=== PATIENT | male | born 1965 | race Caucasian/White ===

== ENCOUNTER 2018-03-24 16:40 | Observation (INO) ==
[2018-03-24] MEDS ORDERED: methylPREDNISolone 125 MG/2 ML VIAL IVP ONE (17:19)
[2018-03-24] MEDS ORDERED: 0.9 % Sodium Chloride 1,000 ML IVC ONE (17:19)
[2018-03-24] MEDS ORDERED: Ipratropium/Albuterol Neb 3 ML IH ONE (17:19)
--- NOTE | 2018-03-24 17:20 | Emergency Department Note ---
Disposition Clinical Impression: Acute exacerbation of chronic obstructive airways disease Community acquired pneumonia Qualifiers: Laterality: unspecified laterality Qualified Code(s): J18.9 - Pneumonia, unspecified organism Disposition: Admitted As Inpatient Condition: Fair SOB HPI - General Chief Complaint: ED Shortness of Breath/Dyspnea Stated Complaint: ROSALINO Time Seen by Provider: 03/24/18 16:55 Source: patient Mode of arrival: ambulatory Limitations: no limitations Nursing Notes Reviewed: Yes Vital Signs Reviewed: Yes - History of Present Illness Pt Subjective Complaint: shortness of breath Onset (ago): week(s) (5) Context: other (Progressive shortness of breath.) Severity: severe Consistency/Duration: gradually worsening Improves with: oxygen, bronchodilators Worsens with: exertion, movement, coughing Known history of: COPD Associated symptoms: Reports: cough, wheezing, sputum production. Denies: chest pain, pain with inspiration, fever, orthopnea, lower extremity pain, polyuria, polydipsia, parasthesias, palpitations, hemoptysis, diaphoresis, nausea/vomiting, syncope, abdominal pain, sense of impending doom Treatment prior to arrival: oxygen, bronchodilator Cough present: Yes Cough Description: Involuntary Cough Frequency: Intermittent Sputum Amount: Scant Sputum Color: White, Cream, Yellow - Related Data Home oxygen amount: 2 liters Home Medications Medication Instructions Recorded Confirmed Albuterol Sulfate [Albuterol 2 puff IH Q6HR 06/12/16 03/24/18 Inhaler] Budesonide/Formoterol 160/4.5 1 puff IH BIDR 06/12/16 03/24/18 [Symbicort 160/4.5] Gabapentin [Neurontin] 300 mg PO TID 06/12/16 03/24/18 Oxycodone HCl/Acetaminophen 1 each PO Q6H 09/19/17 03/24/18 [Percocet 10-325 mg Tablet] Allergies Allergy/AdvReac Type Severity Reaction Status Date / Time acetaminophen Allergy Rash Verified 03/24/18 16:42 [From Darvocet-N] propoxyphene Allergy Rash Verified 03/24/18 16:42 [From Darvocet-N] tramadol Allergy Palpitation Verified 06/12/16 11:52 s All systems ED: reviewed and negative except as stated. Review of Systems: As Per HPI Past Medical History - Past Medical History Medical history: Reports: asthma, COPD, other Surgical history: Reports: no surgical history Psychiatric history: Reports: depression - Social History Smoking Status: Current every day smoker Smokeless Tobacco Status: No Alcohol use: Reports: none Drug use: Reports: none Physical Exam - General Limitations: no limitations General appearance: alert - Head Head exam: atraumatic, normocephalic, normal inspection - Eye Eye exam: Present: normal appearance, PERRL, EOMI - Neck Neck exam: Present: normal inspection, full ROM, trachea midline - Chest Chest inspection: Present: normal inspection, symmetric chest wall rise - Respiratory Respiratory exam: Present: respiratory distress, wheezes, prolonged expiratory phase. Absent: stridor, accessory muscle use - Cardiovascular Cardiovascular exam: Present: normal rhythm, tachycardia, normal heart sounds - Abdominal Exam Abdominal exam: Present: soft, Non-Tender. Absent: tenderness, distention, guarding, rebound, rigidity - Extremities Exam Extremities exam: Present: normal inspection, full ROM. Absent: tenderness, pedal edema - Back Exam Back exam: Present: normal inspection, full ROM. Absent: tenderness - Neurological Exam Neurological exam: Present: alert, oriented X3, CN II-XII intact - Psychiatric Psychiatric exam: Present: normal affect, normal mood - Skin Skin exam: Present: warm, dry, intact, normal color Course Vital Signs Temperature 98.4 F 03/24/18 16:46 Pulse Rate 117 03/24/18 16:46 Respiratory Rate 24 03/24/18 16:46 Blood Pressure 127/91 03/24/18 16:46 O2 Sat by Pulse Oximetry 95 03/24/18 16:46 Temperature 97.5 F L 03/25/18 04:04 Pulse Rate 78 03/25/18 04:04 Respiratory Rate 18 03/25/18 04:04 Blood Pressure 127/70 03/25/18 04:04 O2 Sat by Pulse Oximetry 97 03/25/18 04:04 Oxygen Delivery Oxygen Delivery Nasal Cannula Shortness of Breath/Dyspnea - [facility] Narrative Medical decision making narrative: Acute COPD exacerbation with pneumonia. The patient is in respiratory failure but improve after breathing treatments. He will be admitted for IV antibiotics and pulmonary toileting. - Differential Diagnosis Likely: acute exacerbation of chronic obstructive airways disease, congestive heart failure, pneumonia, pneumothorax - Medical Records Medical records reviewed: Yes I reviewed the patient's medical records. - Lab Data Lab results reviewed: Yes I reviewed the patient's lab results. Result diagrams: 03/24/18 17:40 03/24/18 17:40 Lab Results 03/24/18 03/24/18 Range/Units 17:40 17:40 WBC 8.4 (4.3-11.1) K/mcL RBC 3.82 L (4.19-5.50) M/mcL Hgb 12.1 L (12.9-16.9) g/dL Hct 36.1 L (37.5-50.1) % MCV 94.5 (83.0-100.0) fL MCH 31.7 (28.0-33.3) pg MCHC 33.5 (31.6-35.5) g/dL RDW 13.5 (11.5-14.5) % Plt Count 220 (140-400) K/mcL MPV 9.3 L (9.4-12.4) fL Immature Gran % 0.6 (0-4) % Seg Neutrophils % 87.9 % Lymphocytes % 4.9 % Monocytes % 6.4 % Eosinophils % 0.1 % Basophils % 0.1 % Neutrophils # 7.4 (1.6-8.9) K/mcL Lymphocytes # 0.4 L (0.6-4.6) K/mcL Monocytes # 0.5 (0.0-1.3) K/mcL Eosinophils # 0.0 (0.0-0.6) K/mcL Basophils # 0.0 (0.0-0.2) K/mcL Sodium 136 (136-145) mEq/L Potassium 3.8 (3.5-5.1) mEq/L Chloride 95 L (98-107) mEq/L Carbon Dioxide 31 H (23-29) mEq/L BUN 9 (6-20) mg/dL Creatinine 0.56 L (0.70-1.30) mg/dL Est GFR ( Amer) > 60 (> 60) Est GFR (Non-Af Amer) > 60 (> 60) BUN/Creatinine Ratio 16 (6-26) Glucose 138 H (70-105) mg/dL Calculated Osmolality 283 (280-300) Calcium 8.4 L (8.6-10.3) mg/dL - Radiology Data Radiology results reviewed: Yes I reviewed the patient's radiology results. Chest X-Ray 03/24/18 17:19 IMPRESSION: Patchy airspace opacities in the bilateral mid to lower lung zones are concerning for multifocal pneumonia, in the appropriate clinical setting. Short-term imaging follow up after resolution of symptoms and definitive therapy (4-6 weeks) is recommended to document resolution. D/ / Syed Baker / Syed Baker Interpreting Provider: Syed Baker Critical Care Time Critical Care Time: Yes Total Critical Care Time: 45 Attestation: Critical care performed: Time is exclusive of separately billable procedures. Time includes: direct patient care, patient reassessment, coordination of patient care, interpretation of data (laboratory data, radiology data, and respiratory data), review of patient's medical records, medical consultation and documentation of patient care. Procedures included in critical care time: Procedures excluded from critical care time:
[2018-03-24 17:56] LABS: Basophils % 0.1 %; Eosinophils % 0.1 %; Hematocrit 36.1 % (37.5-50.1); Hemoglobin 12.1 g/dL (12.9-16.9); Immature Granulocytes % 0.6 % (0-4); Lymphocytes # 0.4 K/mcL (0.6-4.6); Lymphocytes % 4.9 %; Mean Corpuscular HGB Conc 33.5 g/dL (31.6-35.5); Mean Corpuscular Hemoglobin 31.7 pg (28.0-33.3); Mean Corpuscular Volume 94.5 fL (83.0-100.0); Mean Platelet Volume 9.3 fL (9.4-12.4); Monocytes # 0.5 K/mcL (0.0-1.3); Monocytes % 6.4 %; Neutrophils # 7.4 K/mcL (1.6-8.9); Platelet Count 220 K/mcL (140-400); Red Blood Count 3.82 M/mcL (4.19-5.50); Red Cell Distribution Width 13.5 % (11.5-14.5); Segmented Neutrophils % 87.9 %
[2018-03-24] MEDS ORDERED: Levofloxacin 750 MG/150 ML 750 MG/150 ML BAG IVPB ONE (17:57)
[2018-03-24 18:13] LABS: BUN/Creatinine Ratio 16 (6-26); Blood Urea Nitrogen 9 mg/dL (6-20); Calcium 8.4 mg/dL (8.6-10.3); Carbon Dioxide 31 mEq/L (23-29); Chloride 95 mEq/L (98-107); Glucose 138 mg/dL (70-105); Osmolality,Calculated 283 (280-300); Potassium 3.8 mEq/L (3.5-5.1); Sodium 136 mEq/L (136-145); eGFR For African Americans > 60 (> 60); eGFR For Non-African Americans > 60 (> 60)
[2018-03-24] MEDS ORDERED: Naloxone 0.4 MG/ML INJ IVP PRN (19:49)
[2018-03-24] MEDS ORDERED: Acetaminophen 325 MG TABLET PO PRN (19:49)
[2018-03-24] MEDS ORDERED: OXYCODONE Oral CONC 10 MG/0.5 ML ORAL.SYG SL PRN (19:49)
[2018-03-24] MEDS ORDERED: Ondansetron 4 MG/2 ML VIAL IVP PRN (19:49)
[2018-03-24] MEDS: MethylPREDNISolone 40 MG/ML VIAL IVP SCH (20:31)
[2018-03-24] MEDS: Gabapentin 300 MG CAPSULE PO SCH (20:34)
[2018-03-24] MEDS: *HR* OxyCODONE/APAP 10/325 TABLET PO SCH (20:34)
[2018-03-24] MEDS: Budesonide/Formoterol 160/4.5 MDI IH SCH (21:17)
[2018-03-24] MEDS: Albuterol 2.5 MG/3 ML NEBULIZER IH PRN (21:50)
[2018-03-25] MEDS: Albuterol 2.5 MG/3 ML NEBULIZER IH PRN ×6 (00:07→20:34)
[2018-03-25] MEDS: *HR* OxyCODONE/APAP 10/325 TABLET PO SCH ×4 (02:09→20:27)
[2018-03-25] MEDS: MethylPREDNISolone 40 MG/ML VIAL IVP SCH ×3 (04:21→20:27)
[2018-03-25] MEDS ORDERED: *HR* OxyCODONE Immed Rel 5 MG TABLET PO PRN (08:45)
[2018-03-25] MEDS: Gabapentin 300 MG CAPSULE PO SCH ×3 (08:46→20:27)
[2018-03-25] MEDS ORDERED: Nicotine 21 MG PATCH.TD24 TD SCH (09:00)
[2018-03-25] MEDS: Budesonide/Formoterol 160/4.5 MDI IH SCH ×2 (10:08→20:37)
--- NOTE | 2018-03-25 12:13 | Internal Med History&Physical ---
Date of Encounter: 03/25/18 Time of Encounter: 11:35 Assessment and Plan (1) Community acquired pneumonia Current visit: Yes Status: Acute He has been started on Levaquin through emergency room. Will add lactobacillus and Robitussin DM Qualifiers: Laterality: unspecified laterality Qualified Code(s): J18.9 - Pneumonia, unspecified organism (2) Anemia Current visit: Yes Status: Acute Will order anemia testing in a.m. Qualifiers: Anemia type: unspecified type Qualified Code(s): D64.9 - Anemia, unspecified (3) Weight loss Current visit: Yes Status: Acute Will order TSH and CT of chest, abdomen, and pelvis. (4) Acute exacerbation of chronic obstructive airways disease Current visit: Yes Status: Acute Continue antibiotic and probiotic. Will add Singulair and DuoNebs. Continue Symbicort and prn albuterol nebs. Internal Medicine - H&P: HPI Chief complaint: Cough and dyspnea Admitted From: Emergency Dept Plans for Post Hospital Care: Home History of present illness: Mr. Reyes is a 53 year old male who came to emergency room stating he had cough with increasing dyspnea since March 20. He reports the cough is productive of thick yellow sputum but no visible blood. He was evaluated in emergency room and found to have bilateral infiltrates on chest x-ray. He was admitted to [facility] floor for ongoing care needs. His respiratory history is significant for having smoked since age 18 up to 2 packs per day. Has a diagnosis of COPD/emphysema and has been prescribed oxygen which he wears at bedtime and when necessary during the daytime. He reports PFTs were done approximately 2014. Past Med Surg Social Fam HX - Past Medical History Medical history: asthma, COPD, other Psychiatric history: depression - Past Surgical History Surgical History: no surgical history - Social History Smoking Status: Current every day smoker Smokeless Tobacco Status: No Alcohol use: none Drug use: none Internal Medicine - H&P: Meds Albuterol Sulfate [Albuterol Inhaler] 2 puff IH Q6HR 06/12/16 [History] Budesonide/Formoterol 160/4.5 [Symbicort 160/4.5] 1 puff IH BIDR 06/12/16 [ History] Gabapentin [Neurontin] 300 mg PO TID 06/12/16 [History] Oxycodone HCl/Acetaminophen [Percocet 10-325 mg Tablet] 1 each PO Q6H 09/19/17 [ History] 3 Allergy/AdvReac Type Severity Reaction Status Date / Time acetaminophen Allergy Rash Verified 03/24/18 16:42 [From Darvocet-N] propoxyphene Allergy Rash Verified 03/24/18 16:42 [From Darvocet-N] tramadol Allergy Palpitation Verified 06/12/16 11:52 s All Systems PM: A 10-system review of systems was performed and is negative for pertinent findings except as documented above in the HPI. Review of systems: Gen.: He reports his weight has decreased from approximately 176 pounds one year ago to present weight of approximately 165 pounds. This was unintentional. Cardiovascular: He has had occasional sharp chest pains in his lateral ribs intermittently over the past month. It seems to be worse on coughing. He denies hypertension HI heart failure DVT or pulmonary embolus. He does get dyspneic on exertion. Respiratory: As per history of present illness GI: Denies disorders of his liver gallbladder or exocrine pancreas : He denies hematuria dysuria or kidney stones Neurologic: He denies large distribution strokes or seizures. Endocrine: He was told in the past he had "thyroid disease" but he does not remember details. He does not take medication for this presently. He denies diabetes or hyperlipidemia Hematology/oncology: He was unaware he had anemia on labs in emergency room. He denies known internal malignancies or other blood disorders. Psychiatric: He has anxiety and depression but does not take medication at this time. [place] skeletal: He reports he had a fall off a roof 2012 and sustained a left arm fracture and bilateral pneumothoraces. He was hospitalized over 40 days at [facility] and required bilateral chest tubes and prolonged therapy. He follows up at a [place] pain management clinic every 4 weeks. He denies other bone joint or muscle disorders. - Constitutional Vitals: Temp Pulse Resp BP Pulse Ox 97.5 F L 98 22 141/83 96 03/25/18 10:29 03/25/18 10:29 03/25/18 10:29 03/25/18 10:29 03/25/18 10:29 Exam: Gen.: He is a well-developed well-nourished male who appears dyspneic at present time. HEENT: Head is atraumatic and normocephalic. Eyes: EOMI. There is no scleral icterus. Mouth: Mucosa is moist. Neck: Supple and nontender. There is no thyromegaly or adenopathy noted. Heart: Regular without murmurs gallops or ectopics Chest: There is no tenderness on compression of his lateral thorax area where he states chest pain has occurred in the past month. Lungs: He has prolonged expiratory phase and mild diffuse wheezing. Abdomen: Soft and nontender. No masses or guarding are noted. Extremities: There is no cyanosis edema or clubbing noted. Dorsalis pedis and posttibial pulses are trace to 1+ palpable bilaterally. His feet are warm to touch. Neurologic: Mental status: He is talkative and a good historian. Cranial nerves : Smile is symmetric. Forehead wrinkles bilaterally. Tongue protrudes midline. EOMI. Motor: There is no pronator drift. Cerebellar: Finger to nose is intact bilaterally. Skin: Warm and dry Internal Med - H&P Results - Labs CBC & Chem 7: 03/24/18 17:40 03/24/18 17:40
[2018-03-25] MEDS: Ipratropium/Albuterol Neb 3 ML IH SCH (16:11)
--- NOTE | 2018-03-25 16:38 | Electrocardiograph Report ---
[address] [place], [place] [address] Test Date: 2018-03-24 Pat Name: Zheng Reyes Department: [id number] Room: [facility] Gender: M Forensic Document Examiner: [id number] : 1965 Requested By: Anuj Melton Order Number: [id number] Reading MD: Yoselin Chung Measurements Intervals [place] Rate: 116 P: 81 SD: 111 QRS: 81 QRSD: 78 T: 74 QT: 325 QTc: 394 Interpretive Statements SINUS TACHYCARDIA POSSIBLE RIGHT ATRIAL ENLARGEMENT ABNORMAL RHYTHM ECG Electronically Signed On 03-25-2018 16:37:07 EDT by Yoselin Chung
[2018-03-25] MEDS ORDERED: Levofloxacin 750 MG/150 ML 750 MG/150 ML BAG IVPB SCH (18:00)
[2018-03-25] MEDS ORDERED: Lactobacillus 1 EACH CAP.SPRINK PO SCH (21:00)
[2018-03-25 21:33] VITALS: BP 168/94
[2018-03-25 21:42] LABS: ABG Base Excess 6 mEq/L (-2 to 3); ABG HCO3 32 mEq/L (21-27); ABG Oxygen Saturation 91 % (95-98); ABG PCO2 50 mmHg (35-45); ABG PH 7.42 pH Units (7.32-7.45); ABG PO2 60 mmHg (85-104); ABG TCO2 34 mEq/L (20-26); Blood Gas Modality oxy mask
[2018-03-26 00:14] LABS: ABG Base Excess 6 mEq/L (-2 to 3); ABG HCO3 31 mEq/L (21-27); ABG Oxygen Saturation 90 % (95-98); ABG PCO2 46 mmHg (35-45); ABG PH 7.43 pH Units (7.32-7.45); ABG PO2 57 mmHg (85-104); ABG TCO2 32 mEq/L (20-26)
[2018-03-26] MEDS: Ipratropium/Albuterol Neb 3 ML IH SCH (02:49)
--- NOTE | 2018-03-26 09:45 | Discharge Summary ---
Date of Encounter: 03/26/18 Time of Encounter: 09:43 - Discharge Diagnosis (1) Community acquired pneumonia Priority: Primary Status: Acute Qualifiers: Laterality: unspecified laterality Qualified Code(s): J18.9 - Pneumonia, unspecified organism (2) Acute exacerbation of chronic obstructive airways disease Priority: Secondary Status: Acute (3) Anemia Priority: Secondary Status: Acute Qualifiers: Anemia type: unspecified type Qualified Code(s): D64.9 - Anemia, unspecified (4) Weight loss Priority: Secondary Status: Acute Hospital course: Mr. Reyes is a 53 year old male who came to emergency room stating he had cough with increasing dyspnea since March 20. He reports the cough is productive of thick yellow sputum but no visible blood. He was evaluated in emergency room and found to have bilateral infiltrates on chest x-ray. He was admitted to [facility] floor for ongoing care needs. Initial orders were written by the emergency room physician. I saw him on March 25 and performed a history and physical. He was started on Levaquin. I added lactobacillus and Robitussin. CT of chest abdomen pelvis was done to further evaluate his pneumonia and reported weight loss. There were multifocal bilateral infiltrates seen. The evening of March 25 he was noted to have increased respiratory distress. His requested he be transferred to [facility]. Contact was made with the hospitalist and arrangements were completed for transfer for ongoing care needs. - Time Spent with Patient Total time spent providing and/or coordinating discharge services: - Discharge Medications Home Medications: Albuterol Sulfate [Albuterol Inhaler] 2 puff IH Q6HR 06/12/16 [History] Budesonide/Formoterol 160/4.5 [Symbicort 160/4.5] 1 puff IH BIDR 06/12/16 [ History] Gabapentin [Neurontin] 300 mg PO TID 06/12/16 [History] Oxycodone HCl/Acetaminophen [Percocet 10-325 mg Tablet] 1 each PO Q6H 09/19/17 [ History] Allergies/Adverse Reactions: 3 Allergy/AdvReac Type Severity Reaction Status Date / Time propoxyphene Allergy Rash Verified 03/24/18 16:42 [From Darvocet-N] tramadol Allergy Palpitation Verified 06/12/16 11:52 s Date of admission: 03/24/18 19:16 Primary care physician: PCP NONE - Constitutional Vitals: Temp Pulse Resp BP Pulse Ox 97.1 F L 116 32 168/94 92 03/25/18 21:31 03/25/18 21:31 03/25/18 21:31 03/25/18 21:31 03/25/18 21:31 - Patient Status Disposition: Transfer Short-Term Hosp Condition: Fair - Discharge Instructions Follow Up With: NONE,PCP [Primary Care Provider] - 1 week
== END 2018-03-25 21:45 | disposition short-term general hospital (02) ==
LOC: INPPIK 16:40 → EMEROOPIK 16:40 → INPPIK 19:44
PROVIDERS: ADMIT Internal Medicine; ATTEND Internal Medicine

== ENCOUNTER 2019-02-21 19:04 | Observation (INO) ==
[2019-02-21] MEDS ORDERED: Ipratropium/Albuterol Neb 3 ML IH ONE (19:28)
--- NOTE | 2019-02-21 19:30 | Emergency Department Note ---
Disposition Clinical Impression: COPD exacerbation Disposition: Admitted As Inpatient Referrals: NONE,PCP [Primary Care Provider] - Forms: ED Satisfaction Letter General Adult HPI - General Chief complaint: ED Shortness of Breath/Dyspnea Stated complaint: ROSALINO/Pneumonia Time Seen by Provider: 02/21/19 19:15 Source: patient Mode of arrival: ambulatory Limitations: no limitations Nursing Notes Reviewed: Yes Vital Signs Reviewed: Yes - History of Present Illness HPI Narrative: Patient says he is here in the hospital on Sunday and was advised stay as inpatient because of pneumonia and he was stubborn and went home. His been taking the medications they gave him but is not helping so he decided to come back because of increasing shortness of breath. He denies any chest pain and otherwise states she is feeling okay he just cannot catch his breath. Onset (ago): day(s) (Several days) Location: chest Pain Scale: 0 Consistency: constant Improves with: nothing Worsens with: nothing - Related Data Home Medications Medication Instructions Recorded Confirmed Albuterol Sulfate [Albuterol 2 puff IH Q6HR 06/12/16 02/21/19 Inhaler] Oxycodone HCl/Acetaminophen 1 each PO Q6H 09/19/17 02/21/19 [Percocet 10-325 mg Tablet] Gabapentin [Neurontin] 600 mg PO QID 03/26/18 02/21/19 Salmeterol Xinafoate [Serevent 50 mcg IH DAILY 03/26/18 02/21/19 Diskus] Previous Rx's Medication Instructions Recorded Budesonide/Formoterol 160/4.5 1 puff IH BIDR inhaler 04/02/18 [Symbicort 160/4.5] levoFLOXacin [Levaquin] 750 mg PO DAILY 7 Days #7 tablet 02/18/19 predniSONE [PredniSONE] 40 mg PO DAILY #10 tablet 02/18/19 Allergies Allergy/AdvReac Type Severity Reaction Status Date / Time propoxyphene Allergy Rash Verified 02/18/19 16:45 [From Darvocet-N] tramadol Allergy Palpitation Verified 02/18/19 16:45 s Past Medical History - Past Medical History Medical history: Reports: asthma, COPD, hyperlipidemia, hypertension, other Surgical history: Reports: no surgical history, other Psychiatric history: Reports: anxiety, depression - Social History Smoking Status: Current every day smoker Smokeless Tobacco Status: No Alcohol use: Reports: rarely Drug use: Reports: none Physical Exam - General Limitations: no limitations General appearance: alert Course Vital Signs Temperature 98.4 F 02/21/19 19:09 Pulse Rate 106 02/21/19 19:09 Respiratory Rate 24 02/21/19 19:09 Blood Pressure 151/90 02/21/19 19:09 O2 Sat by Pulse Oximetry 97 02/21/19 19:09 Temperature 98.4 F 02/21/19 19:09 Pulse Rate 106 02/21/19 19:09 Respiratory Rate 24 02/21/19 19:09 Blood Pressure 151/90 02/21/19 19:09 O2 Sat by Pulse Oximetry 96 02/21/19 19:13 Oxygen Delivery Oxygen Delivery Nasal Cannula Medical Decision Making - MDM Narrative Medical decision making narrative: I reviewed the patient's medication list Patient's condition was discussed with Dr. Williamson who accepts admission - Lab Data Lab results reviewed: Yes I reviewed the patient's lab results. Result diagrams: 02/21/19 19:43 Lab Results 02/21/19 Range/Units 19:43 WBC 5.7 (4.3-11.1) K/mcL RBC 4.00 L (4.19-5.50) M/mcL Hgb 12.4 L (12.9-16.9) g/dL Hct 37.3 L (37.5-50.1) % MCV 93.3 (83.0-100.0) fL MCH 31.0 (28.0-33.3) pg MCHC 33.2 (31.6-35.5) g/dL RDW 13.1 (11.5-14.5) % Plt Count 248 (140-400) K/mcL MPV 9.1 L (9.4-12.4) fL - Radiology Data Radiology results reviewed: Yes I reviewed the patient's radiology results. - EKG Data EKG #1 EKG attestation: Yes I reviewed and interpreted this EKG. EKG results narrative: EKG shows sinus rhythm with rate of 83 bpm MN interval 88 ms. QRS duration 134 ms. QT interval 437 QTC 477 ms R axis XCIII degrees a right bundle-branch pattern is noted no acute ST elevation is appreciated
[2019-02-21 19:57] LABS: Basophils % 0.2 %; Hematocrit 37.3 % (37.5-50.1); Hemoglobin 12.4 g/dL (12.9-16.9); Immature Granulocytes % 0.5 % (0-4); Lymphocytes # 1.8 K/mcL (0.6-4.6); Lymphocytes % 31.8 %; Mean Corpuscular HGB Conc 33.2 g/dL (31.6-35.5); Mean Corpuscular Volume 93.3 fL (83.0-100.0); Mean Platelet Volume 9.1 fL (9.4-12.4); Monocytes # 0.6 K/mcL (0.0-1.3); Monocytes % 9.8 %; Neutrophils # 3.3 K/mcL (1.6-8.9); Platelet Count 248 K/mcL (140-400); Red Cell Distribution Width 13.1 % (11.5-14.5); Segmented Neutrophils % 57.7 %
[2019-02-21 20:14] LABS: Alanine Aminotransferase 23 Units/L (7-52); Albumin 3.8 g/dL (3.5-5.7); Albumin/Globulin Ratio 1.4 (1.1-2.2); Alkaline Phosphatase 63 Units/L (34-104); Aspartate Amino Transferase 20 Units/L (13-39); BUN/Creatinine Ratio 18 (6-26); Bilirubin,Total 0.2 mg/dL (0.3-1.0); Blood Urea Nitrogen 14 mg/dL (6-20); Calcium 8.8 mg/dL (8.6-10.3); Carbon Dioxide 31 mEq/L (23-29); Chloride 101 mEq/L (98-107); Globulin 2.8 g/dL (2.4-3.5); Glucose 132 mg/dL (70-105); Osmolality,Calculated 292 (280-300); Potassium 3.2 mEq/L (3.5-5.1); Sodium 140 mEq/L (136-145); Total Protein 6.6 g/dL (6.4-8.9); eGFR For Non-African Americans > 60 (> 60)
[2019-02-21 20:18] LABS: Troponin I < 0.03 ng/mL (< 0.04)
[2019-02-21 20:20] LABS: Platelet Estimate Normal (Normal)
[2019-02-21] MEDS ORDERED: methylPREDNISolone 125 MG/2 ML VIAL IVP ONE (20:31)
[2019-02-21] MEDS ORDERED: cefTRIAXone 1,000 MG in Water for inj. (sterile) 20 ML 10 ML IVP ONE (20:46)
[2019-02-21] MEDS ORDERED: Naloxone 0.4 MG/ML INJ IVP PRN (21:28)
[2019-02-21] MEDS ORDERED: 0.9 % Sodium Chloride 1,000 ML IVC SCH (21:28)
[2019-02-21] MEDS: *HR* OxyCODONE/APAP 10/325 TABLET PO SCH (22:17)
[2019-02-21] MEDS: Gabapentin 300 MG CAPSULE PO SCH (22:18)
[2019-02-21] MEDS: Nicotine 21 MG PATCH.TD24 TD SCH (22:21)
[2019-02-21] MEDS: Ipratropium/Albuterol Neb 3 ML IH SCH (23:34)
[2019-02-22] MEDS ORDERED: Ipratropium/Albuterol Neb 3 ML IH SCH
[2019-02-22] MEDS: Ipratropium/Albuterol Neb 3 ML IH SCH ×5 (03:57→20:32)
[2019-02-22] MEDS: *HR* OxyCODONE/APAP 10/325 TABLET PO SCH ×4 (04:15→21:33)
[2019-02-22 04:31] LABS: Hemoglobin 11.8 g/dL (12.9-16.9); Immature Granulocytes % 0.4 % (0-4); Lymphocytes # 0.6 K/mcL (0.6-4.6); Lymphocytes % 23.4 %; Mean Corpuscular HGB Conc 32.8 g/dL (31.6-35.5); Mean Corpuscular Hemoglobin 30.9 pg (28.0-33.3); Mean Corpuscular Volume 94.2 fL (83.0-100.0); Mean Platelet Volume 9.2 fL (9.4-12.4); Monocytes # 0.1 K/mcL (0.0-1.3); Neutrophils # 1.8 K/mcL (1.6-8.9); Platelet Count 222 K/mcL (140-400); Red Blood Count 3.82 M/mcL (4.19-5.50); Red Cell Distribution Width 13.2 % (11.5-14.5); Segmented Neutrophils % 72.2 %
[2019-02-22 05:24] LABS: Platelet Estimate Normal (Normal)
[2019-02-22 05:27] LABS: BUN/Creatinine Ratio 21 (6-26); Blood Urea Nitrogen 13 mg/dL (6-20); Calcium 8.6 mg/dL (8.6-10.3); Carbon Dioxide 30 mEq/L (23-29); Chloride 100 mEq/L (98-107); Glucose 174 mg/dL (70-105); Osmolality,Calculated 288 (280-300); Potassium 4.4 mEq/L (3.5-5.1); Sodium 137 mEq/L (136-145); eGFR For Non-African Americans > 60 (> 60)
[2019-02-22] MEDS: predniSONE 20 MG TABLET PO SCH (08:44)
[2019-02-22] MEDS: cefTRIAXone 1,000 MG in 0.9 % Sodium Chloride Mini Bag 100 ML IVPB SCH (08:45)
[2019-02-22] MEDS: Gabapentin 300 MG CAPSULE PO SCH ×4 (08:45→21:34)
[2019-02-22] MEDS ORDERED: NON-FORMULARY MEDICATION 1 EACH EACH (Salmeterol Xinafoate [Serevent Diskus] 50 MCG) IH SCH (09:00)
--- NOTE | 2019-02-22 16:25 | Internal Med History&Physical ---
Date of Encounter: 02/22/19 Time of Encounter: 15:55 Assessment and Plan (1) Acute exacerbation of chronic obstructive airways disease Current visit: No Status: Acute He has been started on IV antibiotics and prednisone. Chest CT will be done to further evaluate. (2) Anemia Current visit: No Status: Chronic Anemia testing will be done in a.m. Qualifiers: Anemia type: iron deficiency Iron deficiency anemia type: other iron d eficiency Qualified Code(s): D50.8 - Other iron deficiency anemias (3) Weight loss Current visit: No Status: Acute Chest CT will be done to further evaluate. TSH was normal at 4.972 on 07/03/2018. Internal Medicine - H&P: HPI Chief complaint: Dyspnea Admitted From: Emergency Dept Plans for Post Hospital Care: Home History of present illness: Mr. Reyes is a 54 year old male who returned to emergency room stating he had worsening dyspnea with minimally productive cough. He had been seen in emergency room February 18 and was felt to have pneumonia. He refused admission. He was prescribed Levaquin and prednisone and she states he took as directed but without improvement. Reports nausea but no vomiting or diarrhea. He came back emergency room and was felt to have exacerbation of COPD and possible pneumonia. He was admitted to [facility] floor for ongoing care needs. Respiratory history is significant for having smoked since age 18 up to 2 packs per day. He had PFTs 08/23/2018 which showed FVC 28% predicted, FEV1 17% productive, FEV1/FVC 48%, with significant improvement in FVC and FEV1 post bronchodilator. He was diagnosed with severe emphysema and uses oxygen at b edtime and when necessary during day time. Past Med Surg Social Fam HX - Past Medical History Medical history: asthma, COPD, hyperlipidemia, hypertension, other Additional medical history: PNEUMONIA, WEARS HOME 02 AT 2LPM VIA [place] Psychiatric history: anxiety, depression - Past Surgical History Surgical History: no surgical history, other Additional surgical history: Multiple chest tubes, Rib fractures - Social History Smoking Status: Current every day smoker Packs per day: 1 Smokeless Tobacco Status: No Alcohol use: none Drug use: none Internal Medicine - H&P: Meds Albuterol Sulfate [Albuterol Inhaler] 2 puff IH Q6HR 06/12/16 [History] Oxycodone HCl/Acetaminophen [Percocet 10-325 mg Tablet] 1 each PO Q6H 10/25/17 [History] Gabapentin [Neurontin] 600 mg PO QID 03/26/18 [History] Salmeterol Xinafoate [Serevent Diskus] 50 mcg IH DAILY 03/26/18 [History] Budesonide/Formoterol 160/4.5 [Symbicort 160/4.5] 1 puff IH BIDR inhaler [Rx] levoFLOXacin [Levaquin] 750 mg PO DAILY 7 Days #7 tablet 02/18/19 [Rx] predniSONE [PredniSONE] 40 mg PO DAILY #10 tablet 02/18/19 [Rx] Allergy/AdvReac Type Severity Reaction Status Date / Time propoxyphene Allergy Rash Verified 02/18/19 16:45 [From Zulema-N] tramadol Allergy Palpitation Verified 02/18/19 16:45 s All Systems PM: A 10-system review of systems was performed and is negative for pertinent find ings except as documented above in the HPI. Review of systems: Review of systems from his February 2018 [facility] hospitalization were reviewed and revised as below. Gen.: He reports his weight has decreased from approximately 176 pounds 2 years ago to present weight of approximately 140 pounds. This was unintentional. Cardiovascular: He has had occasional sharp chest pains in his lateral ribs intermittently over the past year. He denies hypertension [place] heart failure DVT or pulmonary embolus. He does get dyspneic on exertion. Respiratory: As per history of present illness GI: Denies disorders of his liver gallbladder or exocrine pancreas : He denies hematuria dysuria or kidney stones Neurologic: He denies large distribution strokes or seizures. Endocrine: He was told in the past he had "thyroid disease" but he does not remember details. He does not take medication for this presently. He denies diabetes or hyperlipidemia Hematology/oncology: He was unaware he had anemia on labs in emergency room. He also had anemia during his [facility] hospitalization March 2018 which resolved. He denies known internal malignancies or other blood disorders. Psychiatric: He has anxiety and depression but does not take medication at this time. [place] skeletal: He reports he had a fall off a roof 2012 and sustained a left arm fracture and bilateral pneumothoraces. He was hospitalized over [address] [facility] and required bilateral chest tubes and prolonged therapy. He follows up at a [place] pain management clinic every 4 weeks. He denies other bone joint or muscle disorders. - Constitutional Vitals: Temp Pulse Resp BP Pulse Ox 98 F 77 16 88/54 100 02/22/19 16:10 02/22/19 16:10 02/22/19 16:10 02/22/19 16:10 02/22/19 16:10 Exam: Gen.: He is a well-developed well-nourished male lying in bed who appears to have mild respiratory distress. HEENT: Head is atraumatic and normocephalic. Eyes: EOMI. There is no scleral icterus. Mouth: Mucosa is moist. Neck: Supple and nontender. There is no thyromegaly or adenopathy noted. Heart: Regular without murmurs gallops or ectopics. Rate is approximately 100/m Lungs: He has prolonged expiratory phase and mild diffuse wheezing. No egophony is heard. Breath sounds are diminished overall. Abdomen: Soft and nontender. No masses or guarding are noted. Extremities: There is no cyanosis edema or clubbing noted. Dorsalis pedis and posttibial pulses are trace to 1+ palpable bilaterally. His feet are warm to touch. Neurologic: Mental status: He is talkative and a good historian. Cranial nerves: Smile is symmetric. Forehead wrinkles bilaterally. Tongue protrudes midline. EOMI. Motor: There is no pronator drift. Cerebellar: Finger to nose is intact bilaterally. Skin: Warm and dry Internal Med - H&P Results - Labs CBC & Chem 7: 02/22/19 04:26 02/22/19 04:26 Labs: Short CBC 02/21/19 02/22/19 Range/Units 19:43 04:26 WBC 5.7 2.5 L D (4.3-11.1) K/mcL Hgb 12.4 L 11.8 L (12.9-16.9) g/dL Hct 37.3 L 36.0 L (37.5-50.1) % Plt Count 248 222 (140-400) K/mcL Neutrophils # 3.3 1.8 (1.6-8.9) K/mcL BMP 02/21/19 02/22/19 19:43 04:26 Sodium 140 137 Potassium 3.2 L 4.4 D Chloride 101 100 Carbon Dioxide 31 H 30 H BUN 14 13 Creatinine 0.76 0.63 L Glucose 132 H 174 H Calcium 8.8 8.6 Cardiac Enzymes 02/21/19 02/22/19 02/22/19 Range/Units 19:43 04:26 09:23 Troponin I < 0.03 < 0.03 < 0.03 (< 0.04) ng/mL Liver Function 02/21/19 Range/Units 19:43 Total Bilirubin 0.2 L (0.3-1.0) mg/dL AST 20 (13-39) Units/L ALT 23 (7-52) Units/L Alkaline Phosphatase 63 (34-104) Units/L Albumin 3.8 (3.5-5.7) g/dL - Impressions ITS Impressions Chest X-Ray 02/21/19 19:28 IMPRESSION: Advanced emphysema. Bibasilar interstitial opacity suspected to be due to bronchovascular crowding from the upper lobe emphysema although mild edema could have this appearance D/ / Scott Madrid MD / Scott Madrid MD Interpreting Provider: Scott Madrid MD
[2019-02-22] MEDS: Doxycycline 100 MG in 0.9 % Sodium Chloride Mini Bag 100 ML IVPB SCH (17:50)
[2019-02-22] MEDS: Budesonide/Formoterol 160/4.5 1 PUFF INH IH SCH (20:43)
[2019-02-22] MEDS: Lactobacillus 1 EACH CAP.SPRINK PO SCH (21:33)
[2019-02-22] MEDS: Nicotine 21 MG PATCH.TD24 TD SCH (21:34)
[2019-02-23] MEDS: Ipratropium/Albuterol Neb 3 ML IH SCH ×3 (00:28→07:50)
[2019-02-23] MEDS: *HR* OxyCODONE/APAP 10/325 TABLET PO SCH ×2 (03:57→08:03)
[2019-02-23] MEDS: Doxycycline 100 MG in 0.9 % Sodium Chloride Mini Bag 100 ML IVPB SCH (05:33)
[2019-02-23 06:49] LABS: Hematocrit 40.3 % (37.5-50.1); Hemoglobin 12.7 g/dL (12.9-16.9); Mean Corpuscular HGB Conc 31.5 g/dL (31.6-35.5); Mean Corpuscular Hemoglobin 30.3 pg (28.0-33.3); Mean Corpuscular Volume 96.2 fL (83.0-100.0); Mean Platelet Volume 9.7 fL (9.4-12.4); Platelet Count 264 K/mcL (140-400); Red Blood Count 4.19 M/mcL (4.19-5.50); Red Cell Distribution Width 13.2 % (11.5-14.5)
[2019-02-23 07:50] LABS: Thyroid Stimulating Hormone 1.737 mcIU/mL (0.340-5.600)
[2019-02-23] MEDS: Budesonide/Formoterol 160/4.5 1 PUFF INH IH SCH (07:50)
[2019-02-23 07:59] LABS: Lymphocytes # 1.8 K/mcL (0.6-4.6); Monocytes # 0.3 K/mcL (0.0-1.3); Neutrophils # 5.1 K/mcL (1.6-8.9); Reactive Lymphocytes Present (Not Present)
[2019-02-23 08:00] LABS: Platelet Estimate Normal (Normal); Toxic Granulation Present (Not Present)
[2019-02-23] MEDS: predniSONE 20 MG TABLET PO SCH (08:03)
[2019-02-23] MEDS: cefTRIAXone 1,000 MG in 0.9 % Sodium Chloride Mini Bag 100 ML IVPB SCH (08:03)
[2019-02-23] MEDS: Lactobacillus 1 EACH CAP.SPRINK PO SCH (08:04)
[2019-02-23] MEDS: Gabapentin 300 MG CAPSULE PO SCH (08:11)
[2019-02-23 09:51] LABS: Folate 4.8 ng/mL (3.0-16.0)
--- NOTE | 2019-02-23 10:23 | Discharge Summary ---
Orders not resulted at time of discharge: Pending orders 02/21/19 19:28 ECG 12 lead ECG [ECG] Stat 02/21/19 19:43 Culture,Blood [BC] Stat Date of Encounter: 02/23/19 Time of Encounter: 10:05 - Discharge Diagnosis (1) Community acquired pneumonia Priority: Primary Status: Acute Qualifiers: Laterality: unspecified laterality Qualified Code(s): J18.9 - Pneumonia, un specified organism (2) Acute exacerbation of chronic obstructive airways disease Priority: Secondary Status: Acute (3) Anemia Priority: Secondary Status: Chronic Qualifiers: Anemia type: iron deficiency Iron deficiency anemia type: other iron deficiency Qualified Code(s): D50.8 - Other iron deficiency anemias (4) Weight loss Priority: Secondary Status: Acute Hospital course: Mr. Reyes is a 54 year old male who returned to emergency room stating he had worsening dyspnea with minimally productive cough. He had been seen in emergency room February 18 and was felt to have pneumonia. He refused admission. He was prescribed Levaquin and prednisone and she states he took as directed but without improvement. Reports nausea but no vomiting or diarrhea. He came back emergency room and was felt to have exacerbation of COPD and possible pneumonia. He was admitted to [facility] floor for ongoing care needs. Initial orders were written by the emergency room physician. I saw him on February 22 and performed a history and physical. He was started on IV Rocephin with doxycycline. Lactobacillus was added. Chest CT was done to further evaluate. It showed scattered bibasilar nodular opacities within both lungs most likely infectious/inflammatory etiology consistent with multifocal pneumonia. Recommendation for repeat chest CT in 6-8 weeks to ensure resolution was recommended. His PCP can order this. There was severe biapical bullous emphys kavita seen. TSH returned normal at 1.737. PCP can monitor weight loss and refer for further workup as needed. He had good clinical response and felt improved and stable for discharge home when I saw him on February 23. He will continue with antibiotic and probiotic with prednisone for 5 additional days at discharge. I encouraged him to become a nonsmoker. He has supplemental oxygen at home. He will follow with [facility] staff within 1 week. - Time Spent with Patient Total time spent providing and/or coordinating discharge services: - Discharge Medications Prescriptions: New Cefuroxime PO [Ceftin] 500 mg PO Q12HR #10 tablet Budesonide/Formoterol 160/4.5 [Symbicort 160/4.5] 2 puff IH BIDR #1 inh Doxycycline 100 mg PO BID #10 capsule Lactobacillus [Culturelle] 1 each PO BID #10 cap.sprink Montelukast [Singulair] 10 mg PO DAILY #7 tablet Continue Salmeterol Xinafoate [Serevent Diskus] 50 mcg IH DAILY Gabapentin [Neurontin] 600 mg PO QID Budesonide/Formoterol 160/4.5 [Symbicort 160/4.5] 1 puff IH BIDR inhaler Albuterol Sulfate [Albuterol Inhaler] 2 puff IH Q6HR Oxycodone HCl/Acetaminophen [Percocet 10-325 mg Tablet] 1 each PO Q6H levoFLOXacin [Levaquin] 750 mg PO DAILY 7 Days #7 tablet Changed predniSONE [PredniSONE] 20 mg PO DAILY #5 tablet Home Medications: Albuterol Sulfate [Albuterol Inhaler] 2 puff IH Q6HR 06/12/16 [History] Oxycodone HCl/Acetaminophen [Percocet 10-325 mg Tablet] 1 each PO Q6H 09/19/17 [History] Gabapentin [Neurontin] 600 mg PO QID 03/26/18 [History] Salmeterol Xinafoate [Serevent Diskus] 50 mcg IH DAILY 03/26/18 [History] Budesonide/Formoterol 160/4.5 [Symbicort 160/4.5] 1 puff IH BIDR inhaler 04/02/18 [Rx] levoFLOXacin [Levaquin] 750 mg PO DAILY 7 Days #7 tablet 02/18/19 [Rx] Budesonide/Formoterol 160/4.5 [Symbicort 160/4.5] 2 puff IH BIDR #1 inh 02/23/19 [Rx] Cefuroxime PO [Ceftin] 500 mg PO Q12HR #10 tablet 02/23/19 [Rx] Doxycycline 100 mg PO BID #10 capsule 02/23/19 [Rx] Lactobacillus [Culturelle] 1 each PO BID #10 cap.sprink 02/23/19 [Rx] Montelukast [Singulair] 10 mg PO DAILY #7 tablet 02/23/19 [Rx] predniSONE [PredniSONE] 20 mg PO DAILY #5 tablet 02/23/19 [Rx] Allergies/Adverse Reactions: Allergy/AdvReac Type Severity Reaction Status Date / Time propoxyphene Allergy Rash Verified 02/18/19 16:45 [From Darvocet-N] tramadol Allergy Palpitation Verified 02/18/19 16:45 s Date of admission: 02/21/19 20:45 Primary care physician: PCP NONE Consults: 02/21/19 21:36 Consult to Nutrition [CONS] Routine Comment: Consulting Provider: NUTRITION Reason for Dietary Consult: MST Score - Constitutional Vitals: Temp Pulse Resp BP Pulse Ox 97.6 F 72 18 137/81 99 02/23/19 06:29 02/23/19 06:29 02/23/19 07:51 02/23/19 06:29 02/23/19 07:51 - Patient Status Disposition: Home, Self-Care - Discharge Instructions Follow Up With: Clifford Miguel MD [Partnered Physician] - 1 week - Diet and Activity Activity: resume usual activities as tolerated Diet: advance to your usual diet
[2019-02-23 10:43] VITALS: BP 130/71
--- NOTE | 2019-02-26 08:12 | Electrocardiograph Report ---
[address] [id number] Test Date: 2019-02-21 Pat Name: Zheng Reyes Department: [id number] Room: [facility] Gender: M Account Support Specialist: [id number] : 1965 Requested By: Pietro Call Order Number: [id number] Reading MD: Tristin Calzada Measurements Intervals [place] Rate: 83 P: 78 ND: 88 QRS: 93 QRSD: 134 T: 65 QT: 437 QTc: 477 Interpretive Statements SINUS RHYTHM WITH SHORT ND INTERVAL RIGHT BUNDLE BRANCH BLOCK Electronically Signed On 02-26-2019 8:10:37 EDT by Tristin Calzada
== END 2019-02-23 11:39 | disposition home or self-care (01) ==
LOC: EMEROOPIK 19:04 → INPPIK 19:04
PROVIDERS: ADMIT Internal Medicine; ATTEND Internal Medicine